=== PATIENT | female | born 1940 | race Caucasian/White ===

== ENCOUNTER → 2016-11-19 | Outpatient (CLI) | payer MEDICARE, BC ==
[~2016-11-19] MED LIST: CRESTOR20 MG PO; ICAPS AREDS FO1 EACH PO; IRON 27 MG PO; MASON NATURAL1200 MG PO; NIACOR500 MG PO; NORCO 325 MG-7.1 TAB PO; VITAMIN D 1001000 IU PO
== END ==
LOC: COL.RAD 12:51
DX: C50.211 Malignant neoplasm of upper-inner quadrant of right female breast (principal)
CPT/HCPCS: A9541; J0690; J1100; J1170; J2405; J2704

== ENCOUNTER 2016-11-20 07:53 | Day surgery (SDC) | payer MEDICARE, BC ==
[~2016-11-20] VITALS: Ht 170.2 cm; Wt 103.5 kg
[2016-11-20 10:37] VITALS: BP 133/74; PULSE 58; TEMP 97.8
[2016-11-20] MEDS ORDERED: VITAMIN D 1001000 IU PO (10:42)
[2016-11-20] MEDS ORDERED: NIACOR500 MG PO (10:43)
[2016-11-20] MEDS ORDERED: CRESTOR20 MG PO (10:43)
[2016-11-20] MEDS ORDERED: MASON NATURAL1200 MG PO (10:44)
[2016-11-20] MEDS ORDERED: IRON 27 MG PO (10:44)
[2016-11-20] MEDS ORDERED: ICAPS AREDS FO1 EACH PO (10:45)
[2016-11-20] MEDS ORDERED: NORCO 325 MG-7.1 TAB PO (12:43)
[2016-11-20 13:20] VITALS: BP 123/78; PULSE 71; TEMP 97.4
[2016-11-20 13:35] VITALS: BP 124/79; PULSE 70
[2016-11-20 13:50] VITALS: BP 117/88; PULSE 62
[2016-11-20 14:05] VITALS: BP 117/75; PULSE 65
== END 2016-11-20 14:35 | disposition home or self-care (01) ==
LOC: SDCO 07:53
DX: C50.211 Malignant neoplasm of upper-inner quadrant of right female breast (principal); Z17.0 Estrogen receptor positive status [ER+]; Z85.42 Personal history of malignant neoplasm of other parts of uterus; Z92.21 Personal history of antineoplastic chemotherapy; Z80.1 Family history of malignant neoplasm of trachea, bronchus and lung; Z80.42 Family history of malignant neoplasm of prostate; Z90.710 Acquired absence of both cervix and uterus
CPT/HCPCS: J7120

== ENCOUNTER 2021-08-07 16:14 | Observation (INO) | payer MEDICARE, BC ==
[2021-08-07 18:06] VITALS: BP 132/74; PULSE 100; TEMP 98.3
--- NOTE | 2021-08-07 19:00 | NUR ---
Bedside shift report received, assumed care for retail shift leader. Admission assessment complete. Oriented to room/policy. A&Ox3. VS stable. Denies pain/nausea/shortness of breath. Sitting up in recliner playing on computer. Plan of care discussed for this shift to include clear liquid diet/meds/calling for questions/concerns. Verbalizes understanding. Denies needs. Call light in reach. Will monitor.
[2021-08-07] MEDS ORDERED: ARIMIDEX1 MG PO (20:11)
[2021-08-07 20:15] VITALS: BP 135/53; PULSE 83; TEMP 98
--- NOTE | 2021-08-08 00:30 | NUR ---
Resting eyes closed. No s/s of pain noted. Will monitor.
[2021-08-08 00:35] VITALS: BP 13/65; BP 134/65; PULSE 94; TEMP 97.6
[2021-08-08] MEDS ORDERED: ZETIA 10MG TAB10 MG PO (04:42)
[2021-08-08] MEDS ORDERED: CRESTOR20 MG PO (04:42)
[2021-08-08 04:44] VITALS: BP 134/71; PULSE 87; TEMP 98
[2021-08-08 05:13] LABS: BASO % 0.2 % (0.0-2.0); EOS # 0.1 K/mm3 (0.0-0.7); EOS % 1.6 % (0.0-4.0); GRAN % 62.7 % (42.2-75.2); HEMATOCRIT 41.1 % (37.0-47.0); LYMPH # 1.7 K/mm3 (1.2-3.4); LYMPH % 26.2 % (20.0-51.0); MEAN CELL VOLUME 80 fl (80.0-100.0); MEAN CORPUSCULAR HEMOGLOBIN 25 pg (27-31); MEAN CORPUSCULAR HGB CONC 32 g/dl (33.0-37.0); MEAN PLATELET VOLUME 10.1 fl (7.4-10.4); MONO # 0.6 K/mm3 (0.1-0.6); PLATELET COUNT 160 K/mm3 (130-400); RED BLOOD COUNT 5.12 M/mm3 (4.10-5.30); REDCELL DISTRIBUTION WIDTH-CV 18.5 % (11.5-14.5)
--- NOTE | 2021-08-08 05:15 | NUR ---
Patient had an uneventful night. Denied pain/nausea/shortness of breath. VS remained stable. Tolerating clear liquids. LR@75ml/hr to right AC 20g. Denies current needs. Call light in reach. Will monitor.
[2021-08-08 05:32] LABS: BILIRUBIN,TOTAL 0.6 mg/dL (0.2-1.2); C-REACTIVE PROTEIN 0.63 mg/dL (0.00-0.50); CALCIUM 10.5 mg/dL (8.4-10.2); CREATININE, serum 0.76 mg/dL (0.57-1.11); POTASSIUM 3.6 mmol/L (3.5-4.5); TOTAL PROTEIN 6.3 gm/dL (6.2-8.1)
--- NOTE | 2021-08-08 05:51 | NUR ---
Patient turned off IV pump "several hours ago because it was beeping." INT to right AC will now not flush.
[2021-08-08 07:48] VITALS: BP 133/75; PULSE 72; TEMP 97.7
--- NOTE | 2021-08-08 09:11 | NUR ---
TONJA met with the patient to discuss discharge plan. The patient lives alone in [place]. She states that she does not have any family around. She reports independence with ADLs and does not have any DME. The patient states that she is interested in getting a life alert. She states that her friend has one and plans on giving her the information on where she got hers. The patient's PCP is Dr. Klever Macias and she receives her medications from [facility]. The patiet does not have a DPOA-HC in EMR. She states that she may have a Trust, but would have to check. She states that she is not , does not have any children, her parents are , and she does not have any siblings. The patient was interested in obtaining a DPOA-HC form. TONJA provided. The patient plans on returning home upon discharge. She states ther friend, Danielle Fonseca (ph#[phone]), plans on transporting her home. No additional needs at this time. *Discharge plan: home*
--- NOTE | 2021-08-08 09:22 | NUR ---
Initial visit attempt; Patient indisposed, Material Control Manager left card letting patient know of the availability of spiritual care at our hospital.
--- NOTE | 2021-08-08 09:58 | NUR ---
Patient awake and resting in bed. Patient denies pain. Call light and bedside table are within reach. Will continue to monitor paient throughout shift.
== END 2021-08-08 11:40 | disposition home or self-care (01) ==
LOC: SURG 16:14
PROVIDERS: ADMIT Surgery
DX: R10.13 Epigastric pain (principal); K44.9 Diaphragmatic hernia without obstruction or gangrene; Z79.891 Long term (current) use of opiate analgesic
CPT/HCPCS: G0378; J7120